=== PATIENT | male | born 1950 | race Caucasian/White ===

== ENCOUNTER → 2017-01-05 | Outpatient (CLI) | payer MEDICARE ==
[2017-01-05 10:25] LABS: Non-African American GFR(MDRD) >60 (>60 ml/min/1.73 sqM)
--- NOTE | 2017-01-05 12:06 | MR ---
EXAMINATION TYPE: MR lumbar spine wo/w con DATE OF EXAM: 01/05/2017 COMPARISON: Prior lumbar MRI 06/05/2013 HISTORY: Spondylosis of Lumbar region TECHNIQUE: Multiplanar, multisequence images of the lumbar spine were acquired utilizing 8.5 mL intravenous Gada vist gadolinium contrast. L1-L2: Posterior broad-based disc bulge causes anterior mass effect on the thecal sac. Facet arthropa thy with hypertrophy of ligamentum flavum greater on the left encroaches on the lateral recess only m inimally, circumferential extension of endplate disc complex causes some foraminal greater on the lef t. L2-L3: Circumferential posterior disc bulge, endplate disc complex causes mild anterior mass effect o n the thecal sac. There is facet arthropathy. On mild central stenosis. Slight foraminal encroachment . L3-L4: Posterior broad-based disc bulge causes anterior mass effect on the sac, mild central stenosis . Facet arthropathy with hypertrophy of the ligamentum flavum encroaches on the lateral recesses, cir cumferential extension of endplate disc complex causes foraminal encroachment right greater than left . L4-L5: Facet arthropathy with hypertrophy of ligamentum flavum encroaches on the lateral recesses, po sterior extension of endplate disc complex causes anterior mass effect on the thecal sac, canal steno sis is stable and mild. Circumferential extension of endplate disc complex encroaches on the neural f oramina greater on the right likely contributed by the spinal curvature. L5-S1: Circumferential extension of endplate disc complex encroaches on the neural foramina as on anderson or exam. Mild anterior mass effect on the thecal sac is present, there may be contact the proximal S1 nerve roots. Facet arthropathy changes present. Lumbar segments are intact. No paraspinal masses are identified. Conus medullaris has a normal appe arance. Lumbar vertebral bodies show stable height, alignment, bone marrow signal, there may be marro w reconversion. Multilevel spondylosis is present with loss of disc height and signal at the interver tebral levels, multilevel vacuum phenomenon. There is a spinal curvature. Subcentimeter cyst associat ed with the left kidney. Renal vein collar noted incidentally. No significant interval change in enhancement following contrast administration. IMPRESSION: Stable degenerative disc disease, facet arthropathy, foraminal encroachment. Scoliosis. Correlate for anemia.
== END | disposition home or self-care (01) ==
LOC: RADMRIMAIN 09:47
PROVIDERS: ATTEND Psychiatry & Neurology Neurology
DX: M51.36 Other intervertebral disc degeneration, lumbar region (principal); M46.96 Unspecified inflammatory spondylopathy, lumbar region; M41.86 Other forms of scoliosis, lumbar region
CPT/HCPCS: 82565; 72158; 36415; A9581

== ENCOUNTER → 2017-09-28 | Outpatient (CLI) | payer MEDICARE ==
--- NOTE | 2017-09-28 21:58 | MR ---
EXAMINATION TYPE: MR cervical spine wo/w con DATE OF EXAM: 09/28/2017 COMPARISON: 04/26/2012 Contrast: 7 mL Gadavist HISTORY: MS/Cervical disc disorder TECHNIQUE: Multiplanar, multisequence images of the cervical spine were acquired utilizing 7.5 mL intravenous Ga davist gadolinium contrast. Diffusion weighted imaging was performed. C2-C3: No degenerative disc disease. Left paracentral disc bulging. There is facet arthropathy and un covertebral joint hypertrophy contribute to mild left foraminal encroachment. C3-C4: Facet arthropathy and uncovertebral joint particularly with mild right-sided foraminal encroac hment. No disc herniation or canal stenosis. C4-C5: Central disc bulging. Mild effacement of thecal sac. There is facet arthropathy and mild uncov ertebral joint hypertrophy. Mild bilateral foraminal encroachment. C5-C6: Advanced degenerative disc disease with posterior spondylosis and disc broad-based bulging cap ped by spur. Uncovertebral joint hypertrophy and facet arthropathy contribute to mild to moderate for aminal encroachment. No Canal stenosis. C6-C7: Degenerative disc disease. There is no canal stenosis. Left paracentral disc bulging and uncov ertebral joint hypertrophy with facet arthropathy. No Canal stenosis. Mild bilateral foraminal encroa chment. C7-T1: Negative disc disease with facet arthropathy. There is a grade 1 anterolisthesis. This likely is degenerative. No canal stenosis or focal herniation. Neural foramina demonstrates mild bilateral n arrowing. Cervical segments are intact. There is abnormal signal noted within the cervical spinal cord at the level of C4 and C5-6. Suggestion of a subcentimeter right thyroid nodule posteriorly. IMPRESSION: 1. Multilevel degenerative disc disease with most marked findings at C5-C6. Facet arthropathy at C7-T 1 contributes to grade 1 anterolisthesis. 2. Multilevel disc bulging, facet arthropathy result in multilevel foraminal encroachment. 3. Abnormal signal within the visualized spinal cord as discussed above is similar to the prior exam. No enhancement. Differential include myelomalacia or myelitis. Correlate clinically.
== END | disposition home or self-care (01) ==
LOC: RADMRIMAIN 14:53
PROVIDERS: ATTEND Psychiatry & Neurology Neurology
DX: M50.31 Other cervical disc degeneration, high cervical region (principal); M43.12 Spondylolisthesis, cervical region; G35 Multiple sclerosis
CPT/HCPCS: 72156; A9581

== ENCOUNTER → 2018-01-21 | Outpatient (CLI) | payer MEDICARE ==
--- NOTE | 2018-01-21 10:37 | MR ---
MR lumbar spine wo con Low back pain Multiplanar, multiecho imaging of the lumbar spine was obtained without contrast on a 3 Agatha magnet. REFERENCE: Previous study dated 01/05/2017. FINDINGS: Paraspinal soft tissues are unremarkable. Vertebral body height and alignment are maintained. There is a mild levoscoliosis. Cord signal is maintained. The conus ends normally at the level of the superior endplate of L2. At T12-L1, the intervertebral foramina are well maintained. There is no significant compressive disco sean. There is mild hypertrophic changes in the facets. At L1-2, there is disc space loss. There is a bilobed disc displacement. Intervertebral foramina are well maintained. This hypertrophic change and capsulitis within the facets. There is mild to moderate central canal compromise. At L2-3, there is disc space loss. There is a diffuse disc displacement. There is mild, bilateral int ervertebral foraminal narrowing. There is hypertrophic changes and capsulitis within the facets. Ther e is mild central canal compromise. At L3-4, there is disc space loss. There is mild, bilateral intervertebral foraminal narrowing. There is a diffuse disc displacement. This hypertrophic changes and capsulitis within the facets. There is mild to moderate central canal compromise. At L4-5, there is severe disc space loss. There is bilateral intervertebral foraminal narrowing. Ther e is facet arthropathy. There is moderate central canal compromise. At L5-S1, there is disc space loss. There is a diffuse disc displacement. Intervertebral foramina are reasonably well-maintained. There is hypertrophic changes in the facets. IMPRESSION: 1. DIFFUSE DEGENERATIVE DISC DISEASE AND FACET ARTHROPATHY. 2. MILD SCOLIOSIS. 3. VARYING DEGREES OF CENTRAL CANAL COMPROMISE, MOST MARKED AT L4-5. 4. MULTILEVEL INTERVERTEBRAL FORAMINAL NARROWING.
== END | disposition home or self-care (01) ==
LOC: RADMRIMAIN 09:04
PROVIDERS: ATTEND Neurological Surgery
DX: M99.73 Connective tissue and disc stenosis of intervertebral foramina of lumbar region (principal); M51.16 Intervertebral disc disorders with radiculopathy, lumbar region; M46.96 Unspecified inflammatory spondylopathy, lumbar region; M41.86 Other forms of scoliosis, lumbar region
CPT/HCPCS: 72148

== ENCOUNTER → 2020-01-02 | Outpatient (CLI) | payer MEDICARE | END | disposition home or self-care (01) | LOC: LABPAT 10:58 | PROVIDERS: ATTEND Orthopaedic Surgery | DX: Z01.812 Encounter for preprocedural laboratory examination (principal) | CPT/HCPCS: 87070 ==

== ENCOUNTER 2020-01-21 13:06 | Day surgery (SDC) | payer MEDICARE ==
[2020-01-15 13:27] VITALS: BMI 29.1
--- NOTE | 2020-01-20 09:48 | HP ---
HISTORY AND PHYSICAL REASON FOR ADMISSION: Surgeries 01/21/2020 HISTORY OF PRESENT ILLNESS: Kulwant Agrawal is a 69-year-old patient seen with symptomatic left knee osteoarthritis. We discussed options. He elected to proceed with left total knee arthroplasty. Consent regarding the procedure was obtained. Medical clearance was provided by Dr. Roberts. PAST MEDICAL HISTORY: Multiple sclerosis. SURGICAL HISTORY: Cholecystectomy, herniorrhaphy. MEDICATIONS: Copaxone. ALLERGIES: None. SOCIAL HISTORY: Denies tobacco use. PHYSICAL EXAMINATION: Evaluation of the left knee: His range of motion is negative 2/3 to 115. There is tenderness along the medial joint line. Crepitus medial patellofemoral compartments with range of motion. Ligaments stable. Hip rotation without pain. Distal neurovascular exam is intact. RADIOGRAPHS: Radiographs of the left knee reveal severe osteoarthritic changes. IMPRESSION: 1. Left knee osteoarthritis. 2. History of multiple sclerosis. PLAN: Left total knee arthroplasty. Surgery scheduled for 01/21/2020. MMODL / IJN: [id number] /
[~2020-01-21 13:06] MED LIST: ACETAMINOPHEN TAB 500 MG TAB PO PRN; DEXAMETHASONE SOD PHOSPHATE 4 MG/ML 1 ML VIAL IV ONE; HYDROmorphone 0.5 MG/0.5 ML SYRINGE IVP PRN; LIDOCAINE 1% (10MG/ML) FOR IV START INTRADERMA PRN; MELOXICAM 7.5 MG TAB PO PRN; MIDAZOLAM 2 MG/2 ML VIAL IV PRN; ONDANSETRON 4 MG/2 ML VIAL IVP ONE; ROPIVACAINE 246.25 MG, EPINEPHrine 0.5 MG, KETOROLAC 30 MG, cloNIDine HCL/PF 80 MCG, WA... MISCELLANE PRN; TRANEXAMIC ACID 1,000 MG in SODIUM CHLORIDE 0.9% 100 ML IVPB PRN
[2020-01-21] MEDS: LACTATED RINGERS 1,000 ML IV SCH ×3 (14:10→22:29)
[2020-01-21] MEDS ORDERED: PROPOFOL 10 MG/ML 20 ML VIAL IV ONE (14:51)
[2020-01-21] MEDS ORDERED: HYDROmorphone (PF) 1 MG/ML ONE (14:51)
[2020-01-21] MEDS ORDERED: TRANEXAMIC ACID 1,000 MG/10 ML VIAL ONE (14:51)
[2020-01-21] MEDS ORDERED: NEOSTIGMINE 1 MG/ML 10 ML VIAL ONE (14:51)
[2020-01-21] MEDS ORDERED: fentaNYL (PF) 50 MCG/ML 2 ML AMP ONE (14:51)
[2020-01-21] MEDS ORDERED: GLYCOPYRROLATE 0.2 MG/ML 2 ML VIAL ONE (14:51)
[2020-01-21] MEDS ORDERED: LIDOCAINE 1% INJ 10MG/ML (20 ML MDV) ONE (14:51)
[2020-01-21] MEDS ORDERED: SODIUM CHLORIDE 0.9% 100 ML BAG ONE (14:51)
[2020-01-21] MEDS ORDERED: MIDAZOLAM 2 MG/2 ML VIAL ONE (14:51)
[2020-01-21] MEDS ORDERED: ROCURONIUM 10 MG/ML (10 ML VIAL) IV ONE (14:51)
[2020-01-21] MEDS ORDERED: LACTATED RINGERS 1,000 ML IV ONE (16:32)
--- NOTE | 2020-01-21 16:34 | P.OP ---
Date of Procedure: 01/21/20 Preoperative Diagnosis: Left knee osteoarthritis Postoperative Diagnosis: Left knee osteoarthritis Procedure(s) Performed: Left total knee arthroplasty Implants: 1. Depuy attune size 8 left cruciate-retaining cemented femur 2. Depuy attune size 8 fixed bearing cemented tibial baseplate 3. Depuy attune size 8 fixed bearing cruciate retaining 10 mm polyethylene tibial insert 4. Depuy attune 41 mm all polyethylene cemented patella Anesthesia: KATHERINEA, local Surgeon: Gómez Palmer Laboratory Manager #1: Ruperto Monahan Estimated Blood Loss (ml): 50 Pathology: other (Bone) Condition: stable Disposition: PACU Indications for Procedure: 69-year-old patient seen with symptomatic left knee osteoarthritis. After treatment options were discussed, he elected to proceed with total knee arthroplasty. Operative Findings: See description of procedure Description of Procedure: Patient was taken to the operative suite after having an adductor canal catheter placed by the department of anesthesia. Patient underwent a general anesthetic by the department of anesthesia. Patient was given preoperative IV intake antibiotics and TXA. A well-padded tourniquet was placed about the left lower extremity. The lower extremity was then prepped and draped in the normal sterile orthopedic fashion. The extremity was elevated, a tourniquet was insufflated to 300. A standard anterior incision was made sharply through skin. Dissection was taken down through the subcutaneous soft tissues down to the extensor mechanism. A medial arthrotomy was performed, patella was everted and knee was flexed. There was advanced osteoarthritis noted. I introduced my distal intramedullary femoral drill. I then introduced the distal femoral cutting jig. Zhen THOMAS secured the cutting jig with 2 pins. I held retractors in position while Zhen THOMAS performed the distal femoral resection through the guide area we now removed her distal femoral cutting guide. We now placed our 4-in-1 femoral cutting block and positioned and it was secured with 2 pins by Zhen THOMAS while I held the block in position. The distal femoral finishing was now completed. A proximal tibial cutting guide was positioned. I held the guide in the appropriate position with both hands well Zhen THOMAS inserted stabilizing pins into the guide. Proximal tibial cut was made. We now placed a trial femoral component into position, along with an appropriate size tibial tray and insert. We now took the knee through range of motion and had full extension good flexion and good overall soft tissue balance noted. The patella was everted and stabilized with 2 towel clips held by Zhen THOMAS while I performed a flush with patellar quad tendon utilizing a fresh sawblade. We templated the patella, appropriate drill holes were made. An appropriate trial patella was positioned, knee was taken through full range of motion with the patella tracking very nicely. The trial patella was removed. Drill holes were made through the femoral component. All trial components were removed after marking off the appropriate rotation of the tibia. Retractors were now positioned along the proximal tibia. An appropriate keel punch was made with the appropriate size tibial guide by myself on Zhen THOMAS assisted by holding retractors. At this point appropriate size implants were chosen and opened. The joint was irrigated copiously with pulse lavage mechanical irrigation. The posterior capsule was infiltrated with local analgesic. The wound was irrigated with pulse lavage mechanical irrigation. We mixed antibiotic methylmethacrylate. We placed the knee into flexion. We placed multiple retractors assisted by Zhen THOMAS to expose the proximal tibia. Once the methyl methacrylate was ready, the tibial component was cemented into place removing any excess methylmethacrylate form by both myself and Zhen THOMAS. The femoral component was cemented into place removing the removing any excess methylmethacrylate performed by both myself and Zhen THOMAS. We then inserted the appropriate size polyethylene tibial insert. We made sure that it was locked into position. We took the knee into full extension, and then back in a flexion making sure we had removed any excess methylmethacrylate. The patellar component was then cemented down and secured with clamp. Excess meth ylmethacrylate removed. We kept the knee in full extension, patellar clamp in position until methylmethacrylate had hardened. Once it had hardened the patellar clamp was removed. The knee was taken through full range of motion. The patella tracked nicely. There was good soft tissue balancing. The tourniquet was now released. Additional hemostasis was achieved via electrocautery. A second gram of TXA was given. The wound again was irrigated with pulse lavage mechanical irrigation. The superficial soft tissues were infiltrated local analgesic. The extensor mechanism was repaired with Vicryl. We checked the repair with range of motion and it was stable. The subcutaneous soft tissues were repaired with Vicryl in layers. The skin was approximated with pernio/Dermabond. Sterile dressings were applied followed by loose web roll and Eagle bandage. The patient was transferred to a bed, and taken to recovery in stable and satisfactory condition. Zhen THOMAS assisted with this complex procedure.
[2020-01-21] MEDS ORDERED: HYDROcodone/APAP 5-325MG 1 EACH TAB PO PRN ×2 (16:36)
[2020-01-21] MEDS ORDERED: NALOXONE 0.4 MG/ML 1 ML VIAL IV PRN (16:36)
[2020-01-21] MEDS ORDERED: HYDROmorphone 0.5 MG/0.5 ML SYRINGE IVP PRN (16:36)
[2020-01-21] MEDS ORDERED: ONDANSETRON 4 MG/2 ML VIAL IVP PRN (16:36)
[2020-01-21] MEDS ORDERED: HYDROmorphone 0.2 MG/1 ML SYRINGE IVP PRN (16:36)
--- NOTE | 2020-01-21 17:45 | XR ---
EXAMINATION TYPE: XR knee limited LT DATE OF EXAM: 01/21/2020 COMPARISON: 11/28/2019 HISTORY: Knee surgery TECHNIQUE: 2 views FINDINGS: There is left knee prosthesis. Components are in anatomic position. IMPRESSION: No complicating process seen.
[2020-01-21] MEDS ORDERED: SENNOSIDES-DOCUSATE SODIUM 1 EACH TAB PO SCH (21:00)
[2020-01-21] MEDS: HYDROmorphone 0.5 MG/0.5 ML SYRINGE IVP PRN (23:32)
[2020-01-22] MEDS: LACTATED RINGERS 1,000 ML IV SCH ×2 (01:47→09:16)
[2020-01-22] MEDS: HYDROmorphone 0.5 MG/0.5 ML SYRINGE IVP PRN (04:41)
[2020-01-22 07:01] LABS: Basophils # (A) 0.1 k/uL (0-0.2); Basophils % (A) 1 %; Eosinophils % (A) 0 %; HGB 12.3 gm/dL (13.0-17.5); Lymphocytes # (A) 1.4 k/uL (1.0-4.8); Lymphocytes % (A) 15 %; MCH 31.5 pg (25.0-35.0); MCHC 34.3 g/dL (31.0-37.0); Mean Platelet Volume 9.5; Monocytes # (A) 0.9 k/uL (0-1.0); Monocytes % (A) 9 %; Neutrophils % (A) 74 %; Platelet Count 158 k/uL (150-450); RBC 3.91 m/uL (4.30-5.90); WBC 9.5 k/uL (3.8-10.6)
[2020-01-22 07:36] VITALS: BP 119/67; PULSE 73; RESP 16; TEMP 98.9
--- NOTE | 2020-01-22 08:33 | P.CONS ---
History of Present Illness - Reason for Consult Consult date: 01/22/20 - Chief Complaint Status post left knee arthroplasty - History of Present Illness This is a 69-year-old white male with history of hyperlipidemia who is status post left knee arthroplasty. The patient states pain is well controlled is having urinary retention which is not new for the patient. The patient states pain is well controlled. No sniffing chest pain or shortness of breath. No nausea, vomiting or diarrhea. He is ambulating appropriately with a walker. He otherwise has an underlying history of multiple sclerosis Review of Systems Constitutional: Denies chills, Denies fever Eyes: denies blurred vision, denies pain Ears, nose, mouth and throat: Denies headache, Denies sore throat Cardiovascular: Denies chest pain, Denies shortness of breath Respiratory: Denies cough Gastrointestinal: Denies abdominal pain, Denies diarrhea, Denies nausea, Denies vomiting Musculoskeletal: Reports as per HPI Integumentary: Denies pruritus, Denies rash Past Medical History Past Medical History: Musculoskeletal Disorder, Neurologic Disorder, Osteoarthritis (OA) Additional Past Medical History / Comment(s): Has MS, lower back problems History of Any Multi-Drug Resistant Organisms: None Reported Past Surgical History: Cholecystectomy, Hernia Repair, Orthopedic Surgery, Prostate Surgery Additional Past Surgical History / Comment(s): TURP, right elbow surgery Past Anesthesia/Blood Transfusion Reactions: No Reported Reaction Past Psychological History: No Psychological Hx Reported Smoking Status: Never smoker Past Alcohol Use History: Rare Past Drug Use History: None Reported - Past Family History Sister(s) Family Medical History: Cancer Additional Family Medical History / Comment(s): breast Medications and Allergies Home Medications Medication Instructions Recorded Confirmed Type Cholecalciferol [Vitamin D3 (25 1,000 unit PO DAILY 01/15/20 01/21/20 History Mcg = 1000 Iu)] Diclofenac Sodium [Diclofenac 100 mg PO DAILY 01/15/20 01/21/20 History Sodium ER] Fish Oil/Dha/Epa [Fish Oil 1,200 1 each PO DAILY 01/15/20 01/21/20 History mg Fish Oil] Glatiramer Acetate [Copaxone] 40 mg SQ MOWEFR 01/15/20 01/21/20 History Multivitamins, Thera [Multivitamin 1 tab PO DAILY 01/15/20 01/21/20 History (formulary)] Allergies Allergy/AdvReac Type Severity Reaction Status Date / Time No Known Allergies Allergy Verified 01/21/20 13:51 Physical Exam Vitals: Vital Signs Temp Pulse Pulse Resp BP Pulse Ox 01/22/20 07:35 98.9 F 73 16 119/67 94 L 01/22/20 02:40 98.6 F 82 17 101/66 99 01/21/20 19:55 67 135/76 94 L 01/21/20 19:40 97 153/94 94 L 01/21/20 19:25 88 171/89 93 L 01/21/20 19:10 79 143/80 94 L 01/21/20 18:55 67 137/76 94 L 01/21/20 18:40 82 151/79 94 L 01/21/20 18:25 98.2 F 69 17 163/76 98 01/21/20 18:00 81 16 147/70 97 01/21/20 17:45 80 16 142/71 97 01/21/20 17:30 82 16 145/71 97 01/21/20 17:15 96 16 152/62 98 01/21/20 17:00 98.2 F 104 H 14 167/74 98 01/21/20 13:53 98.7 F 93 17 185/102 94 L Intake and Output 01/21/20 01/22/20 01/22/20 22:59 06:59 14:59 Intake Total 250 1200 Output Total 50 1700 Balance 200 -500 Intake: IV 250 Intake, IV Titration 1200 Amount Lactated Ringers 1,000 ml 1200 @ 100 mls/hr IV .Q10H [facility] Rx#:[id number] Output: Urine 1700 Straight 850 Estimated Blood Loss 50 Other: Voiding Method Toilet Weight 88.7 kg - Constitutional General appearance: no acute distress - EENT Eyes: EOMI - Neck Neck: no lymphadenopathy - Respiratory Respiratory: bilateral: CTA - Cardiovascular Rhythm: regular Heart sounds: normal: S1, S2 Abnormal Heart Sounds: no S3 Gallop - Gastrointestinal General gastrointestinal: soft, no tenderness - Integumentary Integumentary: no rash Results CBC & Chem 7: 01/22/20 06:14 Labs: Abnormal Lab Results - Last 24 Hours (Table) 01/22/20 Range/Units 06:14 RBC 3.91 L (4.30-5.90) m/uL Hgb 12.3 L (13.0-17.5) gm/dL Hct 36.0 L (39.0-53.0) % Assessment and Plan (1) History of arthroplasty of left knee Current Visit: Yes Status: Acute Code(s): Z96.652 - PRESENCE OF LEFT ARTIFICIAL KNEE JOINT SNOMED Code(s): 163268249 (2) Multiple sclerosis Current Visit: Yes Status: Acute Code(s): G35 - MULTIPLE SCLEROSIS SNOMED Code(s): 04430565 Plan: Reconcile home medications. We will continue appropriate postop knee protocol. The patient seems to be stable enough for discharge once cleared by orthopedics. See orders otherwise.
[2020-01-22] MEDS ORDERED: MULTIVITAMINS, THERA 1 EACH TAB PO SCH (09:00)
[2020-01-22] MEDS ORDERED: NON FORMULARY DRUG (Fish Oil/Dha/Epa [Fish Oil 1,200 Mg Fish Oil] 1 EACH Capsule) PO SCH (09:00)
[2020-01-22] MEDS ORDERED: ENOXAPARIN 30 MG/0.3 ML SYRINGE SQ SCH (09:00)
[2020-01-22] MEDS ORDERED: CHOLECALCIFEROL 1,000 UNIT TAB PO SCH (09:00)
--- NOTE | 2020-01-22 10:29 | P.PN ---
Subjective Progress Note Date: 01/22/20 Principal diagnosis: Status post left total knee arthroplasty Patient evaluated today at bedside, he is resting comfortably. He is done very well with physical therapy at this time. His pain is well-controlled. He denies any headaches, lightheadedness, chest pain, shortness of breath, nausea vomiting, fever or chills. Objective - Vital Signs Vital signs: Vital Signs Temp 98.9 F 01/22/20 07:35 Pulse 73 01/22/20 07:35 Resp 16 01/22/20 07:35 BP 119/67 01/22/20 07:35 Pulse Ox 94 L 01/22/20 07:35 Intake & Output 01/21/20 01/22/20 01/22/20 18:59 06:59 18:59 Intake Total 1250 1200 Output Total 50 1700 Balance 1200 -500 Weight 88.7 kg 88.7 kg Intake: IV 1250 Intake, IV Titration 1200 Amount Lactated Ringers 1,000 ml 1200 @ 100 mls/hr IV .Q10H [facility] Rx#:[id number] Output: Urine 1700 Straight 850 Estimated Blood Loss 50 Other: Voiding Method Toilet - Exam Left lower extremity: Incision is clean, dry, and intact. The foam dressing is in good condition. There is minimal soft tissue swelling and ecchymosis surrounding the medial and lateral aspects of the incision. Calf is soft, no tenderness with palpation. Plantar flexion, dorsiflexion, EHL, FHL are intact. Sensory exam to light touch throughout the extremity is intact, dorsal pedis pulses 2+. - Labs CBC & Chem 7: 01/22/20 06:14 Labs: Abnormal Lab Results - Last 24 Hours (Table) 01/22/20 Range/Units 06:14 RBC 3.91 L (4.30-5.90) m/uL Hgb 12.3 L (13.0-17.5) gm/dL Hct 36.0 L (39.0-53.0) % Assessment and Plan Assessment: Status post left total knee arthroplasty Plan: Pain control, plan for discharge home on [place] 7.5 mg/325 mg DVT prophylaxis, aspirin 81 mg twice a day Wound care instructions were discussed Icing and elevating techniques discussed Home health care after discharge Medical recommendations Plan for discharge home today Time with Patient: Less than 30
--- NOTE | 2020-01-22 10:31 | P.DS ---
Providers Date of admission: 01/21/2020 Expected date of discharge: 01/22/20 Attending physician: Gómez Palmer Consults: 01/21/20 16:36 Consult Physician Routine Consulting Provider: Haroldo Roberts Reason/Comments: Medical management Do you want consulting provider notified?: Yes Primary care physician: Haroldo Roberts Hospital Course: Date of admission: 01/21/2020 Date of discharge: 01/22/2020 Admission diagnosis: Status post post left total knee arthroplasty Discharge diagnosis: Same Attending physician: Dr. Palmer Surgical procedures: Left total knee arthroplasty Brief history: Patient is a 69-year-old male with a history of progressive primary left knee osteoarthritis. At this point patient has failed conservative treatment measures and has opted to proceed with a elective left total knee arthroplasty. Hospital course: Details of patient's surgery can be found in operative report. Patient tolerated the procedure well and was subsequently transported to orthopedic floor. Patient's orthopeidc and medical care was provided daily. Patient had daily laboratory tests performed for evaluation of overall blood counts. Patient had daily physical therapy to include strengthening range of motion as well as education with walker ambulation. Patient was treated with Lovenox for their postoperative DVT prophylaxis during their inpatient stay. Patient was noted to have a relatively uneventful postoperative course. Patient reported satisfactory pain control with oral pain medications by postoperative day 0. Patient showed satisfactory progress with physical therapy. Patient moved steadily through the program and had no difficulty meeting the goals by postoperative day 1. Given patient's otherwise satisfactory course and having met physical therapy goals, plan is to discharge patient home on postoperative day 1. Discharge condition/disposition: Patient will be discharged home in stable condition. Discharge medications: Instructions are given on resumption of patient's normal daily medications per primary care recommendation, in addition patient will be prescribed Pollard 7.5 mg/325 mg, Colace 100 mg, aspirin 81 mg. Discharge instructions: 1. Wound care and infection precautions, keep incision dry and covered while showering, no lotions, creams, moisturizers. No soaking, tubs, pools, hottubs. Do not scrub over the incision. removed from dressing on 01/31/2020, continue to keep incision covered and dry while showering. 2. Weight-bear as tolerated with walker / cane until follow-up. 3. Ice and elevate when necessary. Do not exceed 20 minutes per hour with ice pack. 4. Utilize compression sleeve until seen at first follow up appointment. 5. Visiting nursing care. 6. Home physical therapy including home CPM. 7. Pain meds and anticoagulants per prescription. 8. Pain medication has potential to cause constipation. Increase oral fluid and fiber intake. Contact primary care provider if you have not had a bowel movement within 48 hours after discharge 9. No anti-inflammatory medication until discussed at first post operative visit, this including Motrin, Aleve, Mobic, Diclofenac. 10. Follow up in office at 2 weeks postop with Zhen Monahan PA-C 11. Follow up with your primary care doctor 7-10 days after discharge. 12. Contact [facility] with any questions, . Procedures: Left total knee arthroplasty Patient Condition at Discharge: Good Plan - Discharge Summary Discharge Rx Participant: Yes New Discharge Prescriptions: New Aspirin [Adult Low Dose Aspirin EC] 81 mg PO BID #60 tablet. Docusate [Colace] 100 mg PO DAILY #30 capsule HYDROcodone/APAP 7.5-325MG [Pollard 7.5] 1 - 2 each PO Q6HR PRN #42 tab PRN Reason: Pain No Action Diclofenac Sodium [Diclofenac Sodium ER] 100 mg PO DAILY Multivitamins, Thera [Multivitamin (formulary)] 1 tab PO DAILY Cholecalciferol [Vitamin D3 (25 Mcg = 1000 Iu)] 1,000 unit PO DAILY Glatiramer Acetate [Copaxone] 40 mg SQ MOWEFR Fish Oil/Dha/Epa [Fish Oil 1,200 mg Fish Oil] 1 each PO DAILY Discharge Medication List Cholecalciferol [Vitamin D3 (25 Mcg = 1000 Iu)] 1,000 unit PO DAILY 01/15/20 [History] Diclofenac Sodium [Diclofenac Sodium ER] 100 mg PO DAILY 01/15/20 [History] Fish Oil/Dha/Epa [Fish Oil 1,200 mg Fish Oil] 1 each PO DAILY 01/15/20 [History] Glatiramer Acetate [Copaxone] 40 mg SQ MOWEFR 01/15/20 [History] Multivitamins, Thera [Multivitamin (formulary)] 1 tab PO DAILY 01/15/20 [History] Aspirin [Adult Low Dose Aspirin EC] 81 mg PO BID #60 tablet. 01/22/20 [Rx] Docusate [Colace] 100 mg PO DAILY #30 capsule 01/22/20 [Rx] HYDROcodone/APAP 7.5-325MG [Pollard 7.5] 1 - 2 each PO Q6HR PRN #42 tab 01/22/20 [Rx] Follow up Appointment(s)/Referral(s): Haroldo Roberts MD [Primary Care Provider] - 1 Week Ruperto Monahan PAC [PHYSICIAN PHYSICIAN'S ASSISTANT] - 02/06/20 2:30 pm Activity/Diet/Wound Care/Special Instructions: Orthopedic Discharge Instructions: 1. Wound care and infection precautions, keep incision dry and covered while showering, no lotions, creams, moisturizers. No soaking, pools, hot tubs. Do not scrub over incision. Remove foam dressing on 01/31/2020, continue to keep incision dry and covered while showering. 2. Weight-bear as tolerated with walker / cane until follow-up. 3. Ice and elevate when necessary. Do not exceed 20 minutes per hour with ice pack. 4. Utilize compression sleeve until seen at first follow up appointment. 5. Pain meds and anticoagulants per prescription. 6. Pain medication has potential to cause constipation. Increase oral fluid and fiber intake. Contact primary care provider if you have not had a bowel movement within 48 hours after discharge. 7. No anti-inflammatory medication until discussed at first post operative visit, this including Motrin, Aleve, Mobic, Diclofenac. 8. Follow up in office at 2 weeks postop with Zhen Monahan PA-C 9. Follow up with your primary care doctor 7-10 days after discharge. 10. Contact [facility] with any questions, . Discharge Disposition: HOME WITH HOME HEALTH SERVICES
[2020-01-23] MEDS ORDERED: GLATIRAMER ACETATE 40 MG/ML SQ SCH (09:00)
== END 2020-01-22 11:59 | disposition home health service (06) ==
LOC: OR 13:06 → 4SSUR 16:50 → OR 01-22 11:59
PROVIDERS: ATTEND Orthopaedic Surgery
DX: M17.12 Unilateral primary osteoarthritis, left knee (principal); M75.112 Incomplete rotator cuff tear or rupture of left shoulder, not specified as traumatic; G35 Multiple sclerosis; R33.9 Retention of urine, unspecified; E78.5 Hyperlipidemia, unspecified; Z80.3 Family history of malignant neoplasm of breast; Z82.61 Family history of arthritis; Z82.0 Family history of epilepsy and other diseases of the nervous system; Z80.8 Family history of malignant neoplasm of other organs or systems; Z79.1 Long term (current) use of non-steroidal anti-inflammatories (NSAID); Z79.899 Other long term (current) drug therapy; Z90.49 Acquired absence of other specified parts of digestive tract; Z98.890 Other specified postprocedural states; Z90.79 Acquired absence of other genital organ(s)
CPT/HCPCS: 27447; 97110; 97161; 85025; 88300; 73560; C1776; C1713; J2250; J0171; J1100; J2710; J0690 ×2; J2405; J2001; J3010; J1885; J1650; J1170 ×3; J2795; J2704; J0735

== ENCOUNTER → 2021-06-26 | Outpatient (CLI) | payer MEDICARE ==
[2021-06-26 18:57] LABS: C Reactive Protein <0.30 mg/dL (0.00-0.80); Rheumatoid Factor, Qnt <10 IU/mL (0-15)
[2021-06-27 03:08] LABS: Anti-DNA, DS unit <1.0 IU/mL; DNA Double-Stranded NEGATIVE (NEGATIVE)
== END | disposition home or self-care (01) ==
LOC: LABWHC1 10:36
PROVIDERS: ATTEND Psychiatry & Neurology Neurology
DX: G35 Multiple sclerosis (principal); M62.838 Other muscle spasm; R29.898 Other symptoms and signs involving the musculoskeletal system
CPT/HCPCS: 36415; 85652; 86038; 86140; 86225; 86431